=== PATIENT | male | born 1980 | race Caucasian/White ===

== ENCOUNTER 2019-01-07 08:14 | Day surgery (SDC) | payer OTHER ==
[2019-01-07] MEDS ORDERED: PROPOFOL 60 ML (09:44)
== END 2019-01-07 12:45 | disposition home or self-care (01) ==
LOC: GIL 08:14
DX: R19.4 Change in bowel habit (principal); K21.9 Gastro-esophageal reflux disease without esophagitis; K29.50 Unspecified chronic gastritis without bleeding; F17.200 Nicotine dependence, unspecified, uncomplicated; J45.909 Unspecified asthma, uncomplicated
CPT/HCPCS: 43239; 88305; 88312